=== PATIENT | female | born 1945 | race Two or more races ===

== ENCOUNTER 2017-11-29 14:06 | Outpatient (CLI) | payer MEDICARE, BC | END 2017-11-29 23:59 | disposition home or self-care (01) | LOC: WOU 14:06 | PROVIDERS: ATTEND Surgery | DX: S51.811A Laceration without foreign body of right forearm, initial encounter (principal); W22.03XA Walked into furniture, initial encounter; Y93.G1 Activity, food preparation and clean up; Y92.000 Kitchen of unspecified non-institutional (private) residence as the place of occurrence of the external cause; I10 Essential (primary) hypertension; M81.0 Age-related osteoporosis without current pathological fracture; Z79.899 Other long term (current) drug therapy | CPT/HCPCS: A6402; G0463 ==

== ENCOUNTER 2017-12-13 14:20 | Outpatient (CLI) | payer MEDICARE, BC | END 2017-12-13 23:59 | disposition home or self-care (01) | LOC: WOU 14:20 | PROVIDERS: ATTEND Surgery | DX: S51.811D Laceration without foreign body of right forearm, subsequent encounter (principal); W22.8XXD Striking against or struck by other objects, subsequent encounter; M81.0 Age-related osteoporosis without current pathological fracture; I10 Essential (primary) hypertension | CPT/HCPCS: A6402; G0463 ==

== ENCOUNTER 2019-06-12 14:15 | Outpatient (CLI) | payer MEDICARE, BC | END 2019-06-12 23:59 | disposition home or self-care (01) | LOC: WOU 14:15 | PROVIDERS: ATTEND Surgery | DX: S81.812D Laceration without foreign body, left lower leg, subsequent encounter (principal); M81.0 Age-related osteoporosis without current pathological fracture; I10 Essential (primary) hypertension | CPT/HCPCS: G0463 ==